=== PATIENT | female | born 1995 | race Caucasian/White ===

== ENCOUNTER 2021-02-25 23:36 | Emergency (ER) | payer MEDICAID ==
[~2021-02-25] VITALS: Ht 167.6 cm; Wt 64.0 kg
[2021-02-25] MEDS ORDERED: ACETAMINOPHEN 325MG TABLET PO STA (23:54)
[2021-02-26] MEDS ORDERED: TETANUS, DIPHTHERIA, PERTUSSIS VAC/PF 0.5ML (>7YR OLD) IM ONE
[2021-02-26] MEDS ORDERED: BACITRACIN ZINC OINT UDPKT TOP ONE
[2021-02-26] MEDS ORDERED: LIDOCAINE HCL/EPINEPHRINE 1%-EPI 1:100,000 20 ML VIAL INFIL ONE
[2021-02-26] MEDS ORDERED: IBUPROFEN 400MG TABLET PO ONE (02:45)
[2021-02-26] MEDS ORDERED: IBUP-2028 MT (03:24)
[2021-02-26 03:29] VITALS: BP 130/64
== END 2021-02-26 03:34 | disposition home or self-care (01) ==
LOC: ER 23:36
DX: S01.01XA Laceration without foreign body of scalp, initial encounter (principal); S00.212A Abrasion of left eyelid and periocular area, initial encounter; S01.511A Laceration without foreign body of lip, initial encounter; R00.0 Tachycardia, unspecified; S10.83XD Contusion of other specified part of neck, subsequent encounter; R03.0 Elevated blood-pressure reading, without diagnosis of hypertension; Y07.01 Husband, perpetrator of maltreatment and neglect; Y04.2XXA Assault by strike against or bumped into by another person, initial encounter; Y93.89 Activity, other specified; Y92.018 Other place in single-family (private) house as the place of occurrence of the external cause
CPT/HCPCS: 12001; 70450; 70486; 81025; 90471; 90715; 99285; J3490